=== PATIENT | male | born 1980 | race Caucasian/White ===

== ENCOUNTER 2020-05-10 10:22 | Emergency (ER) | payer SELFPAY ==
[~2020-05-10] VITALS: Ht 180 cm; Wt 84.0 kg
[~2020-05-10 10:22] MED LIST: CYCL10TA9 PO; LAMO200T14 PO; NAPR-243 PO
[2020-05-10] MEDS ORDERED: fentaNYL INJECTION 100 MCG/2 ML AMP IVP ONE (11:15)
[2020-05-10 11:30] LABS: BASOPHILS # (AUTO) 0.1 10^3/uL (0.0-0.1); BASOPHILS % (AUTO) 1 % (0-10); EOSINOPHILS % (AUTO) 0 % (0-10); HEMATOCRIT 42 % (40-54); HEMOGLOBIN 14.5 g/dL (13.3-17.7); LYMPHOCYTES # (AUTO) 1.3 10^3/uL (1.0-4.0); LYMPHOCYTES % (AUTO) 18 % (12-44); MEAN CORPUSCULAR HEMOGLOBIN 32 pg (25-34); MEAN CORPUSCULAR HGB CONC 34 g/dL (32-36); MEAN CORPUSCULAR VOLUME 92 fL (80-99); MEAN PLATELET VOLUME 9.8 fL (9.0-12.2); MONOCYTES # (AUTO) 0.5 10^3/uL (0.0-1.0); MONOCYTES % (AUTO) 7 % (0-12); NEUTROPHILS # (AUTO) 5.2 10^3/uL (1.8-7.8); NEUTROPHILS % (AUTO) 73 % (42-75); PLATELET COUNT 263 10^3/uL (130-400); WHITE BLOOD COUNT 7.1 10^3/uL (4.3-11.0)
[2020-05-10] MEDS ORDERED: NS 100 ML (IVPB) BAG IV ONE (11:30)
[2020-05-10] MEDS ORDERED: IOHEXOL 350 MG/ML 100 ML (OMNIPAQUE 350) VIAL IV ONE (11:30)
[2020-05-10] MEDS ORDERED: HOLD METFORMIN - RECEIVED CONTRAST 20 ML VIAL IV SCH (11:30)
[2020-05-10 11:33] LABS: BILIRUBIN,URINE NEGATIVE (NEGATIVE); CLARITY,URINE CLEAR; COLOR,URINE YELLOW; GLUCOSE, URINE (UA) NEGATIVE (NEGATIVE); KETONES,URINE NEGATIVE (NEGATIVE); LEUKOCYTE ESTERASE ,URINE NEGATIVE (NEGATIVE); NITRITE,URINE NEGATIVE (NEGATIVE); PROTEIN,URINE NEGATIVE (NEGATIVE)
[2020-05-10 11:44] LABS: BACTERIA,URINE NEGATIVE /HPF
[2020-05-10 11:51] LABS: ALANINE AMINOTRANSFERASE 17 U/L (0-55); ALBUMIN 4.5 GM/DL (3.2-4.5); ALKALINE PHOSPHATASE 74 U/L (40-136); BILIRUBIN,TOTAL 0.6 MG/DL (0.1-1.0); BUN/CREATININE RATIO 13; CALCIUM 9.3 MG/DL (8.5-10.1); CARBON DIOXIDE 27 MMOL/L (21-32); CHLORIDE 106 MMOL/L (98-107); CREATININE SERUM 0.72 MG/DL (0.60-1.30); GFR ESTIMATED > 60; GLUCOSE 99 MG/DL (70-105); POTASSIUM 3.9 MMOL/L (3.6-5.0); SODIUM 139 MMOL/L (135-145)
--- NOTE | 2020-05-10 12:55 | NUR ---
RESTING IN BED WITH NO COMPLAINTS AT THIS TIME. PT STATES HIS PAIN IS BETTER AFTER THE MED.
--- NOTE | 2020-05-10 13:31 | Diagnostic Imaging Report ---
INDICATION: Trauma with right-sided chest and abdominal pain. TECHNIQUE: Multiple contiguous axial images were obtained through the chest and abdomen after the administration of intravenous contrast. Auto Exposure Controls were utilized during the CT exam to meet ALARA standards for radiation dose reduction. CT chest findings: There is no mediastinal hematoma or adenopathy. There is no evidence of aortic dissection or aneurysm. There is no pleural or pericardial fluid. There is no chest wall hematoma. Visualized bony structures show no acute finding. There are compression deformities of T6 and T7 which are likely old.. There is no pneumothorax. The lung windows showed no pulmonary parenchymal contusion or infiltrate. CT abdomen findings: There is no overt bony abnormality. The liver, spleen, pancreas, adrenals, and kidneys all appear normal. There is no retroperitoneal mass or adenopathy. There is no ascites or abnormal fluid collection. Visualized bowel loops appear normal. There is no pelvic mass or free fluid. There are compression deformities of T12 and L1 which appear likely chronic. IMPRESSION: No acute abnormality visualized in the chest or abdomen. There are multiple compression fractures in the spine which appear to be old, consider MRI correlation if there is focal pain at any of these levels. Dictated by: Dictated on workstation # [id number]
--- NOTE | 2020-05-10 13:39 | NUR ---
RESTING IN BED WITH NO COMPLAINTS AT THIS TIME.
[2020-05-10] MEDS ORDERED: KETOROLAC 30 MG/ML VIAL IVP ONE (13:45)
--- NOTE | 2020-05-10 13:46 | ED Fall/Injury ---
General Chief Complaint: Chest Wall Stated Complaint: THROWN FROM HORSE/RIB PAIN Nursing Triage Note: STATES HE WAS BUCKED OFF HIS HORSE THIS AM AT 0730. COMPLAINS OF RIGHT RIB PAIN. Source: patient Exam Limitations: no limitations History of Present Illness Date Seen by Provider: May 10, 2020 Time Seen by Provider: 11:00 Initial Comments This 39-year-old gentleman presents to the emergency room with complaints of severe right lateral chest wall pain after being thrown off of a horse. He struck the ground with the right chest. He denies any head or neck injury. He denies pain anywhere else. He has significant pain with movement, palpation, and inspiration. Crackles are heard in the right base on auscultation. Allergies and Home Medications Allergies Coded Allergies: albuterol (Verified Allergy, Unknown, 05/10/20) bupropion HCl (Verified Allergy, Unknown, 05/10/20) tramadol HCl (Verified Allergy, Unknown, 05/10/20) Home Medications Cyclobenzaprine Hcl 10 Mg Tablet, 1 EACH PO Q8HR PRN FOR MUSCLE SPASMS Prescribed by: ROXANA RAYMOND on 03/22/121551 Lamotrigine 200 Mg Tablet, 1 EACH PO BID, (Reported) Naproxen 500 Mg Tablet, 1 EACH PO TID PRN FOR PAIN Prescribed by: ROXANA RAYMOND on 03/22/121551 Patient Home Medication List Home Medication List Reviewed: Yes Review of Systems Review of Systems Constitutional: no symptoms reported Eyes: No Symptoms Reported Ears, Nose, Mouth, Throat: no symptoms reported Respiratory: see HPI Cardiovascular: no symptoms reported Gastrointestinal: no symptoms reported Genitourinary: no symptoms reported Musculoskeletal: see HPI Skin: no symptoms reported Psychiatric/Neurological: No Symptoms Reported Past Kjcvhwy-Etpzgi-Rjnuuw Hx Past Med/Social Hx: Reviewed Nursing Past Med/Soc Hx Patient Social History Alcohol Use: Rarely Uses Recreational Drug Use: No Smoking Status: Never a Smoker Recent Foreign Travel: No Contact w/Someone Who Travel: No Recent Infectious Disease Expo: No Recent Hopitalizations: No Immunizations Up To Date Date of Influenza Vaccine: Mar 12, 2012 Past Medical History Surgeries: Yes Vascular Surgery Respiratory: No Cardiac: No Neurological: No Genitourinary: No Gastrointestinal: No Musculoskeletal: No Endocrine: No HEENT: No Cancer: No Psychosocial: No Integumentary: No Physical Exam Vital Signs Vital Signs - First Documented 05/10/20 10:30 Temp 36.8 Pulse 107 Resp 16 B/P (MAP) 158/109 (125) Pulse Ox 99 O2 Delivery Room Air Capillary Refill : Less Than 3 Seconds Height, Weight, BMI Height: '" Weight: lbs. oz. kg; 25.00 BMI Method:Stated General Appearance: WD/WN, mild distress HEENT: normal ENT inspection Neck: normal inspection Cardiovascular: regular rate, rhythm, no edema, no murmur Respiratory: no respiratory distress, no accessory muscle use, crackles (Right lung base), other (Right lateral chest wall quite tender to palpation) Gastrointestinal: normal bowel sounds, non tender, soft Extremities: normal inspection, no pedal edema Neurologic/Psychiatric: leather coater II-XII nml as tested, no motor/sensory deficits, alert, normal mood/affect, oriented x 3 Skin: normal color, warm/dry [place] Coma Score Best Eye Response: (4) Open Spontaneously Best Verbal Response: (5) Oriented Best Motor Response: (6) Obeys Commands [place] Total: 15 Progress/Results/Core Measures Results/Orders Lab Results Laboratory Tests Test 05/10/20 11:15 05/10/20 11:25 Range/Units White Blood Count 7.1 4.3-11.0 10^3/uL Red Blood Count 4.59 4.30-5.52 10^6/uL Hemoglobin 14.5 13.3-17.7 g/dL Hematocrit 42 40-54 % Mean Corpuscular Volume 92 80-99 fL Mean Corpuscular Hemoglobin 32 25-34 pg Mean Corpuscular Hemoglobin Concent 34 32-36 g/dL Red Cell Distribution Width 12.7 10.0-14.5 % Platelet Count 263 130-400 10^3/uL Mean Platelet Volume 9.8 9.0-12.2 fL Immature Granulocyte % (Auto) 0 % Neutrophils (%) (Auto) 73 42-75 % Lymphocytes (%) (Auto) 18 12-44 % Monocytes (%) (Auto) 7 0-12 % Eosinophils (%) (Auto) 0 0-10 % Basophils (%) (Auto) 1 0-10 % Neutrophils # (Auto) 5.2 1.8-7.8 10^3/uL Lymphocytes # (Auto) 1.3 1.0-4.0 10^3/uL Monocytes # (Auto) 0.5 0.0-1.0 10^3/uL Eosinophils # (Auto) 0.0 0.0-0.3 10^3/uL Basophils # (Auto) 0.1 0.0-0.1 10^3/uL Immature Granulocyte # (Auto) 0.0 0.0-0.1 10^3/uL Sodium Level 139 135-145 MMOL/L Potassium Level 3.9 3.6-5.0 MMOL/L Chloride Level 106 98-107 MMOL/L Carbon Dioxide Level 27 21-32 MMOL/L Anion Gap 6 5-14 MMOL/L Blood Urea Nitrogen 9 7-18 MG/DL Creatinine 0.72 0.60-1.30 MG/DL Estimat Glomerular Filtration Rate > 60 BUN/Creatinine Ratio 13 Glucose Level 99 70-105 MG/DL Calcium Level 9.3 8.5-10.1 MG/DL Corrected Calcium 8.9 8.5-10.1 MG/DL Total Bilirubin 0.6 0.1-1.0 MG/DL Aspartate Amino Transf (AST/SGOT) 13 5-34 U/L Alanine Aminotransferase (ALT/SGPT) 17 0-55 U/L Alkaline Phosphatase 74 40-136 U/L Total Protein 7.0 6.4-8.2 GM/DL Albumin 4.5 3.2-4.5 GM/DL Urine Color YELLOW Urine Clarity CLEAR Urine pH 8.0 5-9 Urine Specific Dickinson 1.020 1.016-1.022 Urine Protein NEGATIVE NEGATIVE Urine Glucose (UA) NEGATIVE NEGATIVE Urine Ketones NEGATIVE NEGATIVE Urine Nitrite NEGATIVE NEGATIVE Urine Bilirubin NEGATIVE NEGATIVE Urine Urobilinogen 0.2 < = 1.0 MG/DL Urine Leukocyte Esterase NEGATIVE NEGATIVE Urine RBC (Auto) NEGATIVE NEGATIVE Urine RBC NONE /HPF Urine WBC NONE /HPF Urine Crystals NONE /LPF Urine Bacteria NEGATIVE /HPF Urine Casts NONE /LPF Urine Mucus SMALL H /LPF Urine Culture Indicated NO My Orders Orders - ADELINA JENNINGS MD Cbc With Automated Diff (05/10/20 11:07) Comprehensive Metabolic Panel (05/10/20 11:07) Ua Culture If Indicated (05/10/20 11:07) Ed Iv/Invasive Line Start (05/10/20 11:07) Fentanyl Injection (Sublimaze Injection (05/10/20 11:15) Iohexol Injection (Omnipaque 350 Mg/Ml 1 (05/10/20 11:30) Received Contrast (Hold Metformin- Contr (05/10/20 11:30) Ns (Ivpb) (Sodium Chloride 0.9% Ivpb Bag (05/10/20 11:30) Ct Chest/Abdomen/Pelvis W (05/10/20 13:37) Ketorolac Injection (Toradol Injection) (05/10/20 13:45) Medications Given in ED Vital Signs/I&O 05/10/20 05/10/20 10:30 14:16 Temp 36.8 Pulse 107 82 Resp 16 18 B/P (MAP) 158/109 (125) 132/92 Pulse Ox 99 97 O2 Delivery Room Air Room Air Blood Pressure Mean: 125 Progress Progress Note : Progress Note Patient's pain was treated with fentanyl and Toradol. CT was obtained to rule out more significant injury. Abdomen and pelvis was included to evaluate the liver given the proximity of pain to the location of the liver under the chest wall. No serious injuries were found on imaging. Diagnostic Imaging Diagonstic Imaging: CT Plain Films/CT/US/NM/MRI: chest, abdomen, pelvis Comments CT chest, abdomen and pelvis viewed by me and report reviewed. See report below: NAME: HAZEL POLANCO MED REC#: [id number] PT STATUS: DEP ER : [id number] PHYSICIAN: ADELINA JENNINGS MD ADMIT DATE: 05/10/20/ER Draft Date of Exam:05/10/20 CT CHEST/ABDOMEN/PELVIS W INDICATION: Trauma with right-sided chest and abdominal pain. TECHNIQUE: Multiple contiguous axial images were obtained through the chest and abdomen after the administration of intravenous contrast. Auto Exposure Controls were utilized during the CT exam to meet ALARA standards for radiation dose reduction. CT chest findings: There is no mediastinal hematoma or adenopathy. There is no evidence of aortic dissection or aneurysm. There is no pleural or pericardial fluid. There is no chest wall hematoma. Visualized bony structures show no acute finding. There are compression deformities of T6 and T7 which are likely old.. There is no pneumothorax. The lung windows showed no pulmonary parenchymal contusion or infiltrate. CT abdomen findings: There is no overt bony abnormality. The liver, spleen, pancreas, adrenals, and kidneys all appear normal. There is no retroperitoneal mass or adenopathy. There is no ascites or abnormal fluid collection. Visualized bowel loops appear normal. There is no pelvic mass or free fluid. There are compression deformities of T12 and L1 which appear likely chronic. IMPRESSION: No acute abnormality visualized in the chest or abdomen. There are multiple compression fractures in the spine which appear to be old, consider MRI correlation if there is focal pain at any of these levels. Dictated by: Dictated on workstation # [id number] Dict: 05/10/20 1325 Trans: 05/10/20 1431 CV [id number] Interpreted by: PHILLIP FIGUEROA MD Departure Impression Primary Impression: Fall from horse Qualified Codes: V80.010A - Animal-rider injured by fall from or being thrown from horse in noncollision accident, initial encounter Additional Impression: Chest wall contusion Qualified Codes: S20.211A - Contusion of right front wall of thorax, initial encounter Disposition: 01 HOME, SELF-CARE Condition: Improved Departure-Patient Inst. Decision time for Depature: 13:41 Referrals: NO,LOCAL PHYSICIAN (PCP/Family) Primary Care Physician Patient Instructions: CHEST CONTUSION Add. Discharge Instructions: Drink plenty of clear liquids to stay well-hydrated. For pain you may take ibuprofen up to 600 mg every 6 hours and/or Tylenol (acet aminophen) up to 1000 mg every 6 hours. Icing in 20-minute intervals may also help with pain. Try to control your pain well so that you can breathe deeply. That will help prevent pneumonia. Call or return to care if you have any further problems or concerns. All discharge instructions reviewed with patient and/or family. Voiced understanding. ADELINA JENNINGS MD May 10, 2020 13:46
[2020-05-10 14:16] VITALS: BP 132/92
== END 2020-05-10 14:15 | disposition home or self-care (01) ==
LOC: EDUNIT# 10:22 → ER 10:26
DX: S20.211A Contusion of right front wall of thorax, initial encounter (principal); Z88.5 Allergy status to narcotic agent; Z88.8 Allergy status to other drugs, medicaments and biological substances; V80.010A Animal-rider injured by fall from or being thrown from horse in noncollision accident, initial encounter
CPT/HCPCS: 36415; 71260; 74177; 80053; 81000; 85025